=== PATIENT | female | born 1995 | race Caucasian/White ===

== ENCOUNTER 2018-06-14 19:13 | Emergency (ER) | END 2018-06-14 22:46 | disposition home or self-care (01) ==

== ENCOUNTER 2018-12-31 17:39 | Emergency (ER) | payer OTHER ==
[~2018-12-31] VITALS: Ht 172.7 cm; Wt 64.3 kg
[~2018-12-31 17:39] MED LIST: CYCL10TA7 PO; IBUP-1542 PO
[2018-12-31 20:04] VITALS: Ht 172.7 cm; Wt 64.3 kg
--- NOTE | 2018-12-31 20:58 | ERD ---
ER Documentation Chief Complaint Chief Complaint syncope epidose at work under donald than normal heat environment HPI Patient is a 23-year-old female with no medical problems who presents after fainting. She said that she was at work and working next to a hot oven. She fainted at 4:30 PM. She felt like she might be dehydrated. This is the first time she is ever had that. She has tingling in the fingers and felt dizzy afterwards. She has had no treatment as of yet. Upon review of old medical record the patient had one previous visit to the ER in May 2018. She does not remember the name of her primary doctor. ROS All systems reviewed and are negative except as per history of present illness. Medications Home Meds Active Scripts Cyclobenzaprine Hcl* (Cyclobenzaprine Hcl*) 10 Mg Tablet, 10 MG PO TID PRN for MUSCLE SPASMS, #20 TAB Prov:PASILABAN,STEPHAR F 06/14/18 Ibuprofen* (Motrin*) 600 Mg Tab, 600 MG PO Q6H PRN for PAIN AND OR ELEVATED TEMP, #30 TAB Prov:LIZ FRY F 06/14/18 Allergies Allergies: Coded Allergies: No Known Allergy (Unverified , 06/14/18) PMhx/Soc Medical and Surgical Hx: pt denies Medical Hx, pt denies Surgical Hx Hx Miscellaneous Medical Probl: Yes (chronic mid back pain) Hx Alcohol Use: Yes (occasionally) Hx Substance Use: No Hx Tobacco Use: No Smoking Status: Never smoker FmHx Family History: No diabetes Physical Exam Vitals Vital Signs Date Temp Pulse Resp B/P (MAP) Pulse Ox O2 O2 Flow FiO2 Time Delivery Rate 12/31/18 98.0 50 16 110/60 99 Room Air 21:08 (77) 12/31/18 97.2 55 16 115/52 99 20:04 (73) Physical Exam Const: No acute distress Head: Atraumatic Eyes: Normal Conjunctiva ENT: Normal External Ears, Nose and Mouth. Neck: Full range of motion. No meningismus. Resp: Clear to auscultation bilaterally Cardio: Regular rate and rhythm, no murmurs Abd: Soft, non tender, non distended. Normal bowel sounds Skin: No petechiae or rashes Back: No midline or flank tenderness Ext: No cyanosis, or edema Neur: Awake and alert Psych: Normal Mood and Affect Results 24 hrs Laboratory Tests Test 12/31/18 19:59 12/31/18 20:08 Bedside Glucose 91 mg/dL POC Beta HCG, Qualitative NEGATIVE Current Medications Medications Dose Sig/Tala Start Time Status Last (Trade) Ordered Route PRN Stop Time Admin Dose Reason Admin Lorazepam 1 mg ONCE ONCE 12/31/18 DC 12/31/18 (Ativan) PO 21:00 20:40 12/31/18 21:01 Procedures/MDM EKG read by me: Rate/Rhythm: Sinus bradycardia rate of 55 Intervals: Normal Impression: Sinus bradycardia without ischemia Accu-Chek is normal. test is negative. Patient is a 23-year-old female with no medical problems who presents with syncope. Accu-Chek is normal. EKG shows sinus bradycardia but no signs of ischemia. test is negative I doubt or ectopic . At this point I believe outpatient management is appropriate. She was given Ativan and p.o. fluids. She can return for any worsening symptoms. Departure Diagnosis: Primary Impression: Syncope Syncope type: unspecified Qualified Codes: R55 - Syncope and collapse Condition: Fair Patient Instructions: Syncope, Unk Cause Referrals: Your doctor Additional Instructions: Call your primary care doctor TOMORROW for an appointment during the next 1-2 days.See the doctor sooner or return here if your condition worsens before your appointment time. MELISA RHODES MD Dec 31, 2018 20:58
[2018-12-31] MEDS ORDERED: LORAZEPAM 1 MG TAB PO ONE (21:00)
[2018-12-31 21:08] VITALS: BP 110/60; PULSE 50; RESP 16
== END 2018-12-31 21:08 | disposition home or self-care (01) ==
LOC: E/R 17:39
DX: R55 Syncope and collapse (principal)
CPT/HCPCS: 81025; 82962; 93005; Z7502; Z7610